=== PATIENT | female | born 1980 | race Caucasian/White ===

== ENCOUNTER 2016-10-14 20:25 | Emergency (ER) | payer OTHER ==
[~2016-10-14] VITALS: Ht 170.2 cm; Wt 145.2 kg
[~2016-10-14 20:25] MED LIST: APAP500 PO; BUTRANS1 EAC3 TD; CELEXA20 MG PO; CHLORTHALIDONE25 MG PO; CIPRO500 MG PO; CLONAZEPAM 1 MG1 M1 PO; DILAUDID 2 MG TA2 MG PO; FENTANYL PA12 MCG/HR TD; FLOMAX0.4 MG PO; HYDROCODONE-AP1 EAC6 PO; HYOSCYAMINE0.125 MG PO; HYOSCYAMINE0.375 M1 PO; HYOSCYAMINE0.375 MG PO; K-DUR 20 MEQ T20 MEQ PO; KEFLEX500 MG PO; LEVAQUIN 250 M250 MG PO; LEVAQUIN 750 M750 MG PO; LEVSIN-SL0.125 MG SL; LIDODERM 5%1 PATC1 TRANSDERM; METHADONE HCL5 MG PO; NEURONTIN 300300 M1 PO; NORCO 5-325 TA1 EACH PO; NORFLEX100 MG PO; ONDANSETRON HCL4 M2 PO; OXAYDO7.5 MG PO; OXYCODONE PO; PERCOCET 5-3251 EACH PO; PERCOCET 7.5-31 EACH PO; PHENERGAN 25 MG25 M1 PO; PROMS25 WY RECTAL; PROTONIX40 M1 PO; TRAMADOL 50 MG50 MG PO; VALIUM5 MG PO; VENTOLIN HFA 1818 GM INH; VITAMIN D 5050000 I1 PO; WELLBUTRIN SR150 MG PO; ZANAFLEX4 MG PO; ZOFRAN ODT4 MG PO
[2016-10-14 21:11] LABS: URINE BILIRUBIN NEGATIVE (Negative); URINE BLOOD NEGATIVE (Negative); URINE COLOR YELLOW; URINE GLUCOSE-RANDOM* 3+ (Negative); URINE KETONES NEGATIVE (Negative); URINE LEUKOCYTES-REFLEX NEGATIVE (Negative); URINE PROTEIN (DIPSTICK) NEGATIVE (Negative); URINE UROBILINOGEN 0.2 E.U./dl (0.2-1.0)
[2016-10-14 21:25] LABS: AMP/METHAMP Negative (Negative); BARBITURATES Negative (Negative); BENZODIAZEPINES Negative (Negative); COCAINE Negative (Negative); METHADONE Negative (Negative); OPIATES POSITIVE (Negative); PCP Negative (Negative); THC Negative (Negative)
[2016-10-14] MEDS ORDERED: PROCHLORPERAZINE5 M1 PO (21:27)
[2016-10-14] MEDS ORDERED: HYOSCYAMINE0.375 MG PO (21:28)
[2016-10-14] MEDS ORDERED: OXYCODONE HCL10 MG PO (21:31)
[2016-10-14 21:49] LABS: BASOPHILS 0.8 % (0.0-2.0); EOSINOPHILS 6.3 % (0.0-3.0); HEMATOCRIT 43.1 % (37.0-47.0); HEMOGLOBIN 14.3 gm/dL (12.0-15.0); LYMPHOCYTES 19.8 % (24.0-44.0); MCH 27.8 pg (26.0-34.0); MCHC 33.3 g/dL (28.0-37.0); MCV 83.6 fL (80.0-100.0); PLATELET COUNT 250 thou/uL (150-400); POLYS 68.1 % (36.0-66.0); RBC 5.15 mil/uL (4.20-5.00); RDW 14.3 % (10.5-14.5); WBC 8.9 thou/uL (4.0-11.0)
[2016-10-14] MEDS ORDERED: OXYCODONE HCL 55 MG PO (21:50)
[2016-10-14 21:51] LABS: MANUAL DIFF NO
[2016-10-14 21:58] LABS: POTASSIUM 3.8 mmol/L (3.5-5.1)
[2016-10-14 22:02] LABS: ALBUMIN 3.4 g/dL (3.4-5.0); TOTAL BILIRUBIN 0.3 mg/dL (<0.1-1.0); TOTAL PROTEIN 7.7 g/dL (6.4-8.2)
[2016-10-14] MEDS ORDERED: PEPCID20 MG PO (22:16)
[2016-10-14] MEDS ORDERED: PHENERGAN 25 MG25 M1 PO (22:16)
[2016-10-14] MEDS ORDERED: COMPAZINE10 MG PO (22:16)
[2016-10-14] MEDS ORDERED: CARAFATE 1 GM TA1 G1 PO (22:16)
== END 2016-10-14 23:18 | disposition home or self-care (01) ==
LOC: ER 20:25
PROVIDERS: Emergency Medicine
DX: K27.9 Peptic ulcer, site unspecified, unspecified as acute or chronic, without hemorrhage or perforation (principal); J45.909 Unspecified asthma, uncomplicated; N18.2 Chronic kidney disease, stage 2 (mild); F32.9 Major depressive disorder, single episode, unspecified; Z90.89 Acquired absence of other organs; Z88.1 Allergy status to other antibiotic agents; Z88.8 Allergy status to other drugs, medicaments and biological substances; Z88.6 Allergy status to analgesic agent

== ENCOUNTER 2017-01-04 00:22 | Emergency (ER) | payer OTHER ==
[~2017-01-04] VITALS: Ht 170.2 cm; Wt 145.2 kg
[~2017-01-04 00:22] MED LIST changes: +CARAFATE 1 GM TA1 G1 PO; +COMPAZINE10 MG PO; +OXYCODONE HCL 55 MG PO; +OXYCODONE HCL10 MG PO; +PEPCID20 MG PO; +PROCHLORPERAZINE5 M1 PO
[2017-01-04 02:19] LABS: ABSOLUTE NEUTROPHILS 7.4 thou/uL (1.4-8.2); BASOPHILS 0.3 % (0.0-2.0); EOSINOPHILS 9.7 % (0.0-3.0); HEMATOCRIT 40.3 % (37.0-47.0); HEMOGLOBIN 13.6 gm/dL (12.0-15.0); LYMPHOCYTES 20.5 % (24.0-44.0); MCH 27.7 pg (26.0-34.0); MCHC 33.7 g/dL (28.0-37.0); MCV 82.1 fL (80.0-100.0); MONOCYTES 5.2 % (1.0-8.0); PLATELET COUNT 269 thou/uL (150-400); POLYS 64.3 % (36.0-66.0); RBC 4.91 mil/uL (4.20-5.00); RDW 15.1 % (10.5-14.5); WBC 11.4 thou/uL (4.0-11.0)
[2017-01-04 02:22] LABS: MANUAL DIFF NO
[2017-01-04 02:54] LABS: POTASSIUM 4.4 mmol/L (3.5-5.1)
[2017-01-04 03:14] LABS: CALCIUM 9.7 mg/dL (8.5-10.1); CREATININE 0.7 mg/dL (0.6-1.0)
[2017-01-04 03:22] LABS: URINE BILIRUBIN NEGATIVE (Negative); URINE BLOOD 3+ (Negative); URINE COLOR YELLOW; URINE GLUCOSE-RANDOM* NEGATIVE (Negative); URINE KETONES NEGATIVE (Negative); URINE LEUKOCYTES-REFLEX 1+ (Negative); URINE PROTEIN (DIPSTICK) NEGATIVE (Negative); URINE SPECIFIC GRAVITY 1.025 (1.003-1.035); URINE UROBILINOGEN 0.2 E.U./dl (0.2-1.0)
[2017-01-04 03:49] LABS: SQUAMOUS >10 Many /LPF (0-3)
[2017-01-04 03:50] LABS: CALCIUM OXALATE >10 Many /LPF (None Seen); CASTS None Seen /LPF (None Seen); URINE RBC 0-2 Rare /HPF (0-2); URINE WBC-REFLEX 6-15 Few /HPF (0-5)
[2017-01-04] MEDS ORDERED: BACTRIM DS TAB1 EACH PO (03:58)
[2017-01-04] MEDS ORDERED: NORCO 5-325 TA1 EACH PO (03:58)
== END 2017-01-04 05:27 | disposition home or self-care (01) ==
LOC: ER 00:22
PROVIDERS: Emergency Medicine
DX: N12 Tubulo-interstitial nephritis, not specified as acute or chronic (principal); N18.2 Chronic kidney disease, stage 2 (mild); J45.909 Unspecified asthma, uncomplicated; F32.9 Major depressive disorder, single episode, unspecified; Z98.890 Other specified postprocedural states; Z88.1 Allergy status to other antibiotic agents; Z88.6 Allergy status to analgesic agent; F10.99 Alcohol use, unspecified with unspecified alcohol-induced disorder

== ENCOUNTER 2017-01-13 23:48 | Emergency (ER) | payer OTHER ==
[~2017-01-13] VITALS: Ht 170.2 cm; Wt 142.9 kg
[~2017-01-13 23:48] MED LIST changes: +BACTRIM DS TAB1 EACH PO
[2017-01-14 01:33] LABS: ABSOLUTE NEUTROPHILS 7.7 thou/uL (1.4-8.2); BASOPHILS 0.7 % (0.0-2.0); EOSINOPHILS 4.4 % (0.0-3.0); HEMATOCRIT 40.3 % (37.0-47.0); HEMOGLOBIN 13.6 gm/dL (12.0-15.0); LYMPHOCYTES 17.5 % (24.0-44.0); MCH 27.5 pg (26.0-34.0); MCHC 33.7 g/dL (28.0-37.0); MCV 81.6 fL (80.0-100.0); MONOCYTES 4.4 % (1.0-8.0); PLATELET COUNT 294 thou/uL (150-400); RBC 4.94 mil/uL (4.20-5.00); RDW 14.6 % (10.5-14.5); WBC 10.6 thou/uL (4.0-11.0)
[2017-01-14 01:41] LABS: ANION GAP 10 mmol/L (7-16); BUN 7 mg/dL (7-18); CALCIUM 8.9 mg/dL (8.5-10.1); CHLORIDE 104 mmol/L (98-107); CO2 26 mmol/L (21-32); CREATININE 0.8 mg/dL (0.6-1.0); GLUCOSE 221 mg/dL (74-106); POTASSIUM 3.9 mmol/L (3.5-5.1); SODIUM 140 mmol/L (136-145)
[2017-01-14 01:46] LABS: ALBUMIN 3.4 g/dL (3.4-5.0); ALKALINE PHOSPHATASE 127 U/L (46-116); DIRECT BILIRUBIN < 0.1 mg/dL (<0.1-0.3); SGOT 24 U/L (15-37); SGPT 27 U/L (30-65); TOTAL BILIRUBIN 0.4 mg/dL (<0.1-1.0); TOTAL PROTEIN 7.9 g/dL (6.4-8.2)
[2017-01-14 01:48] LABS: MANUAL DIFF NO
[2017-01-14] MEDS ORDERED: PERCOCET PO (05:05)
[2017-01-14] MEDS ORDERED: PHENERGAN25 M1 RECTAL (05:09)
== END 2017-01-14 05:11 | disposition home or self-care (01) ==
LOC: ER 23:48
PROVIDERS: Emergency Medicine
DX: R10.10 Upper abdominal pain, unspecified (principal); R11.2 Nausea with vomiting, unspecified; R19.7 Diarrhea, unspecified; J45.909 Unspecified asthma, uncomplicated; F32.9 Major depressive disorder, single episode, unspecified; N18.2 Chronic kidney disease, stage 2 (mild); F10.99 Alcohol use, unspecified with unspecified alcohol-induced disorder; Z90.49 Acquired absence of other specified parts of digestive tract; Z90.89 Acquired absence of other organs; Z88.1 Allergy status to other antibiotic agents; Z88.6 Allergy status to analgesic agent

== ENCOUNTER 2017-01-23 03:57 | Emergency (ER) | payer OTHER ==
[~2017-01-23] VITALS: Ht 170.2 cm; Wt 142.9 kg
[~2017-01-23 03:57] MED LIST changes: +PERCOCET PO; +PHENERGAN25 M1 RECTAL
[2017-01-23 04:35] LABS: URINE BILIRUBIN NEGATIVE (Negative); URINE BLOOD TRACE (Negative); URINE COLOR YELLOW; URINE GLUCOSE-RANDOM* NEGATIVE (Negative); URINE KETONES NEGATIVE (Negative); URINE LEUKOCYTES-REFLEX 1+ (Negative); URINE PROTEIN (DIPSTICK) NEGATIVE (Negative); URINE SPECIFIC GRAVITY <= 1.005 (1.003-1.035); URINE UROBILINOGEN 0.2 E.U./dl (0.2-1.0)
[2017-01-23 04:44] LABS: SQUAMOUS >10 Many /LPF (0-3); URINE WBC-REFLEX 6-15 Few /HPF (0-5)
[2017-01-23 04:45] LABS: CASTS None Seen /LPF (None Seen); CRYSTALS None Seen /LPF (None Seen); URINE RBC 3-10 Few /HPF (0-2)
[2017-01-23 05:31] LABS: POC CREATININE 0.7 mg/dL (0.6-1.3); POC HEMOGLOBIN 14.3 g/dL (12.0-15.0); POC POTASSIUM 4.6 mmol/L (3.5-5.1)
[2017-01-23] MEDS ORDERED: ONDANSETRON HCL4 M2 PO (05:56)
== END 2017-01-23 06:01 | disposition home or self-care (01) ==
LOC: ER 03:57
PROVIDERS: Emergency Medicine
DX: R10.9 Unspecified abdominal pain (principal); R51 Headache; R11.10 Vomiting, unspecified; J45.909 Unspecified asthma, uncomplicated; N18.4 Chronic kidney disease, stage 4 (severe); F32.9 Major depressive disorder, single episode, unspecified; F10.99 Alcohol use, unspecified with unspecified alcohol-induced disorder; Z88.1 Allergy status to other antibiotic agents; Z98.890 Other specified postprocedural states; Z88.6 Allergy status to analgesic agent

== ENCOUNTER 2017-02-19 13:20 | Emergency (ER) | payer OTHER ==
[~2017-02-19] VITALS: Ht 170.2 cm; Wt 140.6 kg
[2017-02-19] MEDS ORDERED: PHENERGAN12.5 M2 RECTAL (13:39)
[2017-02-19 13:45] LABS: URINE BLOOD 3+ (Negative); URINE COLOR YELLOW; URINE GLUCOSE-RANDOM* NEGATIVE (Negative); URINE KETONES NEGATIVE (Negative); URINE LEUKOCYTES-REFLEX TRACE (Negative); URINE PROTEIN (DIPSTICK) 2+ (Negative); URINE SPECIFIC GRAVITY >= 1.030 (1.003-1.035)
[2017-02-19 13:52] LABS: URINE BILIRUBIN NEGATIVE (Negative)
[2017-02-19 13:55] LABS: SQUAMOUS 4-10 Moderate /LPF (0-3); URINE RBC 3-10 Few /HPF (0-2); URINE WBC-REFLEX 6-15 Few /HPF (0-5)
[2017-02-19 13:56] LABS: CASTS None Seen /LPF (None Seen); CRYSTALS None Seen /LPF (None Seen)
[2017-02-19 15:43] LABS: ABSOLUTE NEUTROPHILS 9.3 thou/uL (1.4-8.2); BASOPHILS 0.2 % (0.0-2.0); HEMATOCRIT 39.8 % (37.0-47.0); LYMPHOCYTES 14.9 % (24.0-44.0); MCH 27.7 pg (26.0-34.0); MCHC 32.7 g/dL (28.0-37.0); MCV 84.9 fL (80.0-100.0); MONOCYTES 4.2 % (1.0-8.0); PLATELET COUNT 256 thou/uL (150-400); POLYS 69.7 % (36.0-66.0); RBC 4.69 mil/uL (4.20-5.00); RDW 15.1 % (10.5-14.5); WBC 13.4 thou/uL (4.0-11.0)
[2017-02-19 15:44] LABS: MANUAL DIFF NO
[2017-02-19] MEDS ORDERED: ZOFRAN ODT8 MG PO (15:49)
[2017-02-19] MEDS ORDERED: FLOMAX0.4 MG PO (15:49)
[2017-02-19] MEDS ORDERED: NORCO 5-325 TA1 EACH PO (15:49)
[2017-02-19 15:58] LABS: CALCIUM 8.6 mg/dL (8.5-10.1); CREATININE 0.9 mg/dL (0.6-1.0); POTASSIUM 4.1 mmol/L (3.5-5.1)
[2017-02-19 16:13] LABS: ALBUMIN 3.4 g/dL (3.4-5.0); TOTAL BILIRUBIN 0.4 mg/dL (<0.1-1.0); TOTAL PROTEIN 7.7 g/dL (6.4-8.2)
== END 2017-02-19 17:15 | disposition home or self-care (01) ==
LOC: ER 13:20
PROVIDERS: Emergency Medicine
DX: N20.1 Calculus of ureter (principal); J45.909 Unspecified asthma, uncomplicated; F32.9 Major depressive disorder, single episode, unspecified; N18.2 Chronic kidney disease, stage 2 (mild); F10.99 Alcohol use, unspecified with unspecified alcohol-induced disorder; Z90.49 Acquired absence of other specified parts of digestive tract; Z90.89 Acquired absence of other organs; Z88.1 Allergy status to other antibiotic agents; Z88.6 Allergy status to analgesic agent

== ENCOUNTER 2017-03-10 07:09 | Emergency (ER) | payer OTHER ==
[~2017-03-10] VITALS: Ht 170.2 cm; Wt 136.1 kg
[~2017-03-10 07:09] MED LIST changes: +PHENERGAN12.5 M2 RECTAL; +ZOFRAN ODT8 MG PO
[2017-03-10] MEDS ORDERED: GABITRIL 4 MG TA4 MG PO (07:31)
[2017-03-10] MEDS ORDERED: MAGOX 400400 MG PO (07:31)
[2017-03-10 08:04] LABS: ABSOLUTE NEUTROPHILS 8.4 thou/uL (1.4-8.2); BASOPHILS 0.8 % (0.0-2.0); EOSINOPHILS 5.1 % (0.0-3.0); HEMATOCRIT 47.7 % (37.0-47.0); HEMOGLOBIN 16.3 gm/dL (12.0-15.0); LYMPHOCYTES 23.2 % (24.0-44.0); MCH 28.4 pg (26.0-34.0); MCHC 34.1 g/dL (28.0-37.0); MCV 83.3 fL (80.0-100.0); MONOCYTES 4.6 % (1.0-8.0); POLYS 66.3 % (36.0-66.0); RBC 5.73 mil/uL (4.20-5.00); RDW 14.7 % (10.5-14.5); WBC 14.3 thou/uL (4.0-11.0)
[2017-03-10 08:04] LABS: AMP/METHAMP Negative (Negative); BARBITURATES Negative (Negative); BENZODIAZEPINES POSITIVE (Negative); COCAINE Negative (Negative); METHADONE Negative (Negative); OPIATES Negative (Negative); PCP Negative (Negative); THC Negative (Negative)
[2017-03-10 08:10] LABS: MANUAL DIFF NO
[2017-03-10 08:18] LABS: CALCIUM 9.7 mg/dL (8.5-10.1); POTASSIUM 4.3 mmol/L (3.5-5.1)
[2017-03-10 08:22] LABS: ALBUMIN 3.9 g/dL (3.4-5.0); TOTAL BILIRUBIN 0.9 mg/dL (<0.1-1.0)
[2017-03-10 08:42] LABS: URINE BILIRUBIN 1+ (Negative); URINE BLOOD NEGATIVE (Negative); URINE COLOR YELLOW; URINE GLUCOSE-RANDOM* NEGATIVE (Negative); URINE KETONES NEGATIVE (Negative); URINE LEUKOCYTES-REFLEX TRACE (Negative); URINE PROTEIN (DIPSTICK) 1+ (Negative); URINE SPECIFIC GRAVITY >= 1.030 (1.003-1.035); URINE UROBILINOGEN 0.2 E.U./dl (0.2-1.0)
[2017-03-10 08:45] LABS: ICTOTEST (BILI CONFIRMATORY) Negative (Negative)
[2017-03-10 09:21] LABS: AMORPHOUS URATES Many /LPF (None Seen); CASTS None Seen /LPF (None Seen); SQUAMOUS 0-3 Few /LPF (0-3); URINE RBC None Seen /HPF (0-2); URINE WBC-REFLEX None Seen /HPF (0-5)
[2017-03-10 11:06] LABS: PLATELET COUNT 284 thou/uL (150-400)
[2017-03-10] MEDS ORDERED: PHENERGAN 25 MG25 M1 PO (11:19)
== END 2017-03-10 12:15 | disposition home or self-care (01) ==
LOC: ER 07:09
PROVIDERS: Emergency Medicine
DX: G89.29 Other chronic pain (principal); R10.9 Unspecified abdominal pain; R11.2 Nausea with vomiting, unspecified; R30.0 Dysuria; J45.909 Unspecified asthma, uncomplicated; F32.9 Major depressive disorder, single episode, unspecified; N18.9 Chronic kidney disease, unspecified; F10.99 Alcohol use, unspecified with unspecified alcohol-induced disorder; Z90.49 Acquired absence of other specified parts of digestive tract; Z98.890 Other specified postprocedural states; Z88.1 Allergy status to other antibiotic agents; Z88.6 Allergy status to analgesic agent; Z88.8 Allergy status to other drugs, medicaments and biological substances

== ENCOUNTER 2018-12-13 01:42 | Emergency (ER) | payer OTHER ==
[~2018-12-13] VITALS: Ht 170.2 cm; Wt 137.9 kg
[~2018-12-13 01:42] MED LIST changes: +CELEXA40 MG PO; +GABITRIL 4 MG TA4 MG PO; +MAGOX 400400 MG PO; +ZANAFLEX2 MG PO
[2018-12-13 02:06] LABS: URINE BILIRUBIN NEGATIVE (Negative); URINE BLOOD 3+ (Negative); URINE CLARITY CLEAR; URINE COLOR YELLOW; URINE GLUCOSE-RANDOM* 3+ (Negative); URINE KETONES NEGATIVE (Negative); URINE LEUKOCYTES-REFLEX NEGATIVE (Negative); URINE NITRITE-REFLEX NEGATIVE (Negative); URINE PROTEIN (DIPSTICK) NEGATIVE (Negative); URINE SPECIFIC GRAVITY 1.015 (1.005-1.035); URINE UROBILINOGEN 0.2 E.U./dl (0.2-1.0)
[2018-12-13 02:28] LABS: BACTERIA-REFLEX 1-9 Few /HPF (None Seen); CASTS None Seen /LPF (None Seen); CRYSTALS None Seen /LPF (None Seen); MUCUS 0-3 Light strn/LPF (None Seen); SQUAMOUS 0-3 Few /LPF (0-3); URINE WBC-REFLEX 0-5 Rare /HPF (0-5)
[2018-12-13 02:36] LABS: HEMATOCRIT 41.5 % (37.0-47.0); HEMOGLOBIN 13.7 gm/dL (12.0-15.0); MCH 28.2 pg (26.0-34.0); MCV 85.5 fL (80.0-100.0); RBC 4.85 mil/uL (4.20-5.00); RDW 14.4 % (10.5-14.5); WBC 8.3 thou/uL (4.0-11.0)
[2018-12-13 02:38] LABS: CALCIUM 8.8 mg/dL (8.5-10.1); CREATININE 0.8 mg/dL (0.6-1.0); POTASSIUM 4.2 mmol/L (3.5-5.1)
[2018-12-13] MEDS ORDERED: OXYCONTIN10 M1 PO (03:32)
[2018-12-13] MEDS ORDERED: BUSPIRONE HCL10 MG PO (03:32)
[2018-12-13] MEDS ORDERED: CLONAZEPAM 0.50.5 M1 PO (03:33)
[2018-12-13] MEDS ORDERED: PROZAC20 MG PO (03:33)
[2018-12-13] MEDS ORDERED: FLOMAX0.4 MG PO (03:34)
[2018-12-13] MEDS ORDERED: ZYLOPRIM300 MG PO (03:34)
[2018-12-13] MEDS ORDERED: FOLGARD TABLET1 EAC1 PO (03:35)
[2018-12-13 03:56] VITALS: BP 131/78
== END 2018-12-13 04:05 | disposition home or self-care (01) ==
LOC: ER 01:42
PROVIDERS: Emergency Medicine
DX: R31.9 Hematuria, unspecified (principal); R10.9 Unspecified abdominal pain; R11.2 Nausea with vomiting, unspecified; E11.22 Type 2 diabetes mellitus with diabetic chronic kidney disease; N18.2 Chronic kidney disease, stage 2 (mild); J45.909 Unspecified asthma, uncomplicated; Z90.49 Acquired absence of other specified parts of digestive tract; Z98.890 Other specified postprocedural states; Z88.1 Allergy status to other antibiotic agents; Z88.6 Allergy status to analgesic agent; Z79.899 Other long term (current) drug therapy

== ENCOUNTER 2021-08-31 15:30 | Emergency (ER) | payer OTHER ==
[~2021-08-31] VITALS: Ht 167.6 cm; Wt 127.0 kg
[~2021-08-31 15:30] MED LIST changes: +BUSPIRONE HCL10 MG PO; +CLONAZEPAM 0.50.5 M1 PO; +FOLGARD TABLET1 EAC1 PO; +OXYCONTIN10 M1 PO; +PROZAC20 MG PO; +ZYLOPRIM300 MG PO
[2021-08-31] MEDS ORDERED: ANTACID325 MG PO (15:44)
[2021-08-31] MEDS ORDERED: METFORMIN HCL500 M3 PO (15:45)
[2021-08-31] MEDS ORDERED: MAGNESIUM250 M1 PO (15:46)
[2021-08-31] MEDS ORDERED: VALIUM2 MG PO (15:46)
[2021-08-31] MEDS ORDERED: HYDROCHLOROTHIA25 M1 PO (15:47)
[2021-08-31] MEDS ORDERED: LIPITOR 20 MG T20 M1 PO (15:49)
[2021-08-31] MEDS ORDERED: ALLOPURINOL 10100 M1 PO (15:49)
[2021-08-31] MEDS ORDERED: PERCOCET 5-3251 EACH PO (15:50)
[2021-08-31] MEDS ORDERED: MELATONIN10 M1 PO (15:50)
[2021-08-31 15:57] LABS: URINE BILIRUBIN NEGATIVE (Negative); URINE BLOOD NEGATIVE (Negative); URINE CLARITY CLEAR; URINE COLOR YELLOW; URINE GLUCOSE-RANDOM* NEGATIVE (Negative); URINE KETONES NEGATIVE (Negative); URINE LEUKOCYTES-REFLEX NEGATIVE (Negative); URINE NITRITE-REFLEX NEGATIVE (Negative); URINE PROTEIN (DIPSTICK) NEGATIVE (Negative); URINE UROBILINOGEN 0.2 E.U./dl (0.2-1.0)
[2021-08-31 17:26] LABS: CALCIUM 9.1 mg/dL (8.5-10.1); CREATININE 0.8 mg/dL (0.6-1.0); POTASSIUM 4.6 mmol/L (3.5-5.1)
[2021-08-31 17:33] LABS: ALBUMIN 3.7 g/dL (3.4-5.0); TOTAL BILIRUBIN 0.6 mg/dL (0.2-1.0); TOTAL PROTEIN 8.2 g/dL (6.4-8.2)
[2021-08-31 18:59] VITALS: BP 128/78
[2021-08-31 19:12] LABS: ABSOLUTE NEUTROPHILS 7.6 thou/uL (1.4-8.2); BASOPHILS 0.3 % (0.0-2.0); EOSINOPHILS 0.5 % (0.0-3.0); HEMATOCRIT 39.4 % (37.0-47.0); HEMOGLOBIN 12.8 gm/dL (12.0-15.0); MCH 26.4 pg (26.0-34.0); MCHC 32.5 g/dL (28.0-37.0); MCV 81.3 fL (80.0-100.0); PLATELET COUNT 277 thou/uL (150-400); POLYS 80.2 % (36.0-66.0); RBC 4.85 mil/uL (4.20-5.00); RDW 15.9 % (10.5-14.5); WBC 9.5 thou/uL (4.0-11.0)
== END 2021-08-31 19:00 | disposition home or self-care (01) ==
LOC: ER 15:30
PROVIDERS: Emergency Medicine; Nurse Practitioner
DX: N23 Unspecified renal colic (principal); J45.909 Unspecified asthma, uncomplicated; F32.9 Major depressive disorder, single episode, unspecified; N18.2 Chronic kidney disease, stage 2 (mild); Z79.899 Other long term (current) drug therapy; Z90.49 Acquired absence of other specified parts of digestive tract; Z90.89 Acquired absence of other organs; Z88.0 Allergy status to penicillin; Z88.5 Allergy status to narcotic agent